=== PATIENT | female | born 1990 | race Caucasian/White ===

== ENCOUNTER 2019-03-24 15:30 | Emergency (ER) | payer OTHER ==
[2019-03-24] MEDS ORDERED: ALBUTEROL 2.5 MG/3 ML NEB SOL ONE (15:55)
[2019-03-24] MEDS ORDERED: DOXYCYCLINE 100 MG CAP PO ONE (15:55)
--- NOTE | 2019-03-24 16:01 | ER ---
Nurse's Notes [facility] Name: Radha Candelario Age: 28 yrs Sex: Female : 1990 Arrival Date: 03/24/2019 Time: 15:33 Bed 23 Private MD: Diagnosis: Wheezing;Detrimental effects of drug abuse;Cutaneous necrotic areas Presentation: 03/24 15:33 Transition of care: patient was not received from another setting of care. Risk sv Assessment: Do you want to hurt yourself or someone else? Patient reports no desire to harm self or others. 15:33 Method Of Arrival: Ambulatory sv 15:34 Presenting complaint: Patient states: 3 abscesses noted to left foot, left 2nd and 3rd sv digit that have "been there a whole." "I haven't shot up any dope in a while.". Onset of symptoms is unknown. Initial Sepsis Screen: Does the patient meet any 2 criteria? No. Patient's initial sepsis screen is negative. Does the patient have a suspected source of infection? No. Patient's initial sepsis screen is negative. Care prior to arrival: None. 15:34 Acuity: [place] 3 sv Triage Assessment: 15:33 General: Appears in no apparent distress. Behavior is calm, cooperative, appropriate sv for age. Neuro: Level of Consciousness is awake, alert, obeys commands, Gait is steady. Respiratory: Respiratory effort is even, unlabored. Derm: Abscess located on left index finger, left middle finger and anterior aspect of left ankle. Historical: - Allergies: 15:37 Depakote; sv 15:37 Seroquel; sv - Immunization history:: Adult Immunizations up to date. - Social history:: Smoking status: Patient uses tobacco products, smokes one-half pack cigarettes per day. - Ebola Screening: : No symptoms or risks identified at this time. Screenin:07 Abuse screen: Denies threats or abuse. Denies injuries from another. Nutritional rv screening: No deficits noted. Tuberculosis screening: No symptoms or risk factors identified. Fall Risk None identified. Assessment: 16:06 General: Appears in no apparent distress. Behavior is restless. Pain: Denies pain. rv Neuro: Level of Consciousness is awake, alert, obeys commands, Oriented to person, place, time, situation. Cardiovascular: Patient's skin is warm and dry. Respiratory: Parent/caregiver reports the patient having cough that is persistent. GI: No signs and/or symptoms were reported involving the gastrointestinal system. : No signs and/or symptoms were reported regarding the genitourinary system. EENT: No signs and/or symptoms were reported regarding the EENT system. Derm: Abscess. Musculoskeletal: No signs and/or symptoms reported regarding the musculoskeletal system. Vital Signs: 15:37 BP 118 / 85; Pulse 104; Resp 20; Temp 98.1(O); Pulse Ox 95% ; Weight 99.79 kg; Height 5 sv ft. 7 in. (170.18 cm); 15:37 Body Mass Index 34.46 (99.79 kg, 170.18 cm) sv ED Course: 15:33 Patient arrived in ED. sv 15:33 Arm band placed on. sv 15:37 Triage completed. sv 15:47 [facility] snw 15:47 Yobani Ponce MD is Attending Physician. snw 15:49 Huber Moon RN is Primary Nurse. rv 16:08 Patient has correct armband on for positive identification. Bed in low position. Call rv light in reach. Side rails up X 1. Pulse ox on. NIBP on. 16:08 No provider procedures requiring assistance completed. Patient did not have IV access rv during this emergency room visit. Administered Medications: 15:58 Drug: Doxycycline 100 mg Route: PO; rv 16:25 Follow up: Response: No adverse reaction rv 15:58 Drug: Albuterol 2.5 mg Route: Inhalation; rv 16:24 Follow up: Response: No adverse reaction rv Outcome: 16:00 Discharge ordered by . snw 16:08 Discharged to home ambulatory, with friend. rv 16:08 Condition: good 16:08 Discharge instructions given to patient, Instructed on discharge instructions, follow up and referral plans. 16:25 Instructed on medication usage, Demonstrated understanding of instructions, follow-up rv care, medications, Prescriptions given X 2. 16:26 Patient left the ED. rv Signatures: Ting Davison RN RN Brittni Joseph FNP-C TRANSVERSE ABDOMINAL MUSCLE NURSE-Csnw Huber Moon RN RN rv
--- NOTE | 2019-03-24 16:01 | EDPHYS ---
Physician Documentation [facility] Name: Radha Candelario Age: 28 yrs Sex: Female : 1990 Arrival Date: 03/24/2019 Time: 15:33 Bed 23 Private MD: ED Physician Yobani Ponce HPI: 03/24 15:53 This 28 yrs old Female presents to ER via Ambulatory with complaints of snw Abscess. 15:53 the patient presents with a swollen area of the anterior aspect of left ankle and left snw middle finger and left index finger. Description: scabbed, reddened, black centers. Possible cause(s): "Missed" while shooting up heroin and meth. Associated signs and symptoms: The patient has no apparent associated signs or symptoms. Modifying factors: the symptoms are alleviated by nothing. Severity of symptoms: At their worst the symptoms were moderate. The patient has experienced similar episodes in the past. The patient has been recently seen by a physician: with similar presenting complaints, given zithromax one week ago. Historical: - Allergies: 15:37 Depakote; sv 15:37 Seroquel; sv - Immunization history:: Adult Immunizations up to date. - Social history:: Smoking status: Patient uses tobacco products, smokes one-half pack cigarettes per day. - Ebola Screening: : No symptoms or risks identified at this time. ROS: 15:53 Constitutional: Negative for fever, chills, and weight loss, Eyes: Negative for injury, snw pain, redness, and discharge, ENT: Negative for injury, pain, and discharge, Neck: Negative for injury, pain, and swelling, Cardiovascular: Negative for chest pain, palpitations, and edema, Respiratory: Negative for shortness of breath, cough, wheezing, and pleuritic chest pain, Abdomen/GI: Negative for abdominal pain, nausea, vomiting, diarrhea, and constipation, Back: Negative for injury and pain, : Negative for injury, bleeding, discharge, and swelling, MS/Extremity: Negative for injury and deformity, Neuro: Negative for headache, weakness, numbness, tingling, and seizure, Psych: Negative for depression, anxiety, suicide ideation, homicidal ideation, and hallucinations. 15:53 Skin: Positive for cellulitis, of the left hand and anterior aspect of left ankle. Exam: 15:53 Constitutional: This is a well developed, well nourished patient who is awake, alert, snw and in no acute distress. Head/Face: Normocephalic, atraumatic. Eyes: Pupils equal round and reactive to light, extra-ocular motions intact. Lids and lashes normal. Conjunctiva and sclera are non-icteric and not injected. Cornea within normal limits. Periorbital areas with no swelling, redness, or edema. ENT: Nares patent. No nasal discharge, no septal abnormalities noted. Tympanic membranes are normal and external auditory canals are clear. Oropharynx with no redness, swelling, or masses, exudates, or evidence of obstruction, uvula midline. Mucous membranes moist. Neck: Trachea midline, no thyromegaly or masses palpated, and no cervical lymphadenopathy. Supple, full range of motion without nuchal rigidity, or vertebral point tenderness. No Meningismus. Chest/axilla: Normal chest wall appearance and motion. Nontender with no deformity. No lesions are appreciated. Cardiovascular: Regular rate and rhythm with a normal S1 and S2. No gallops, murmurs, or rubs. Normal PMI, no JVD. No pulse deficits. Abdomen/GI: Soft, non-tender, with normal bowel sounds. No distension or tympany. No guarding or rebound. No evidence of tenderness throughout. 15:53 Back: No spinal tenderness. No costovertebral tenderness. Full range of motion. MS/ Extremity: Pulses equal, no cyanosis. Neurovascular intact. Full, normal range of motion. Neuro: Awake and alert, GCS 15, oriented to person, place, time, and situation. Cranial nerves II-XII grossly intact. Motor strength 5/5 in all extremities. Sensory grossly intact. Cerebellar exam normal. Normal gait. 15:53 Respiratory: the patient does not display signs of respiratory distress, Respirations: shallow respirations, are not present, Breath sounds: bronchial sounds, that are moderate, decreased breath sounds, bronchitic cough. 15:53 Skin: Appearance: normal except for affected area, injury, multiple scars to extremities, necrotic area to dorsum of left ankle, left dorsal index and middle fingers 2nd to "I missed". Vital Signs: 15:37 BP 118 / 85; Pulse 104; Resp 20; Temp 98.1(O); Pulse Ox 95% ; Weight 99.79 kg; Height 5 sv ft. 7 in. (170.18 cm); 15:37 Body Mass Index 34.46 (99.79 kg, 170.18 cm) sv MDM: 15:49 Patient medically screened. snw 16:02 Data reviewed: vital signs, nurses notes. Data interpreted: Pulse oximetry: on room air snw is 95 %. Interpretation: acceptable. Counseling: I had a detailed discussion with the patient and/or guardian regarding: the historical points, exam findings, and any diagnostic results supporting the discharge/admit diagnosis, to return to the emergency department if symptoms worsen or persist or if there are any questions or concerns that arise at home. Counseling: I had a detailed discussion with the patient and/or guardian regarding: smoking cessation. Special discussion: Based on the history and exam findings, there is no indication for further emergent testing or inpatient evaluation. I discussed with the patient/guardian the need to see the primary care provider for further evaluation of the symptoms. Administered Medications: 15:58 Drug: Doxycycline 100 mg Route: PO; rv 16:25 Follow up: Response: No adverse reaction rv 15:58 Drug: Albuterol 2.5 mg Route: Inhalation; rv 16:24 Follow up: Response: No adverse reaction rv Disposition: 17:15 Co-signature as Attending Physician, Yobani Ponce MD I agree with the assessment and kdr plan of care. Disposition: 03/24/19 16:00 Discharged to Home. Impression: Wheezing, Detrimental effects of drug abuse, Cutaneous necrotic areas. - Condition is Stable. - Discharge Instructions: Skin Abscess, Allergies, Adult, Addiction and the Family, Cough, Adult, [id number], How to Use an Inhaler, [id number], What You Need To Know About Illegal Drug Use and Dependence, Youth. - Prescriptions for Doxycycline Hyclate 100 mg Oral Tablet - take 1 tablet by ORAL route every 12 hours; 20 tablet. Albuterol Sulfate 90 mcg/actuation - inhale 1-2 puff by INHALATION route every 4-6 hours; 1 Inhaler. - Medication Reconciliation Form, Thank You Letter, Antibiotic Education, Prescription Opioid Use form. - Follow up: Private Physician; When: 1 week; Reason: Recheck today's complaints, Continuance of care, Re-evaluation by your physician. Follow up: Emergency Department; When: As needed; Reason: Worsening of condition. Signatures: Saman, Ting, RN RN sv Yobani Ponce MD MD [facility] Brittni Joseph, CANCER RESEARCHER-C CANCER RESEARCHER-Csnw Huber Moon, RN RN rv Corrections: (The following items were deleted from the chart) 16:26 16:00 03/24/2019 16:00 Discharged to Home. Impression: Wheezing; Detrimental effects of rv drug abuse; Cutaneous necrotic areas. Condition is Stable. Forms are Medication Reconciliation Form, Thank You Letter, Antibiotic Education, Prescription Opioid Use. Follow up: Private Physician; When: 1 week; Reason: Recheck today's complaints, Continuance of care, Re-evaluation by your physician. Follow up: Emergency Department; When: As needed; Reason: Worsening of condition. snw
[2019-03-24 17:12] VITALS: BP 118/85; TEMP 98.1; O2SAT 95
== END 2019-03-24 16:26 | disposition home or self-care (01) ==
LOC: ER 15:30
DX: I96 Gangrene, not elsewhere classified (principal); F19.10 Other psychoactive substance abuse, uncomplicated; F17.210 Nicotine dependence, cigarettes, uncomplicated; Z88.5 Allergy status to narcotic agent
CPT/HCPCS: 99284

== ENCOUNTER 2019-03-27 17:43 | Emergency (ER) | payer OTHER ==
--- NOTE | 2019-03-27 18:14 | ER ---
Nurse's Notes [facility] Name: Radha Candelario Age: 28 yrs Sex: Female : 1990 Arrival Date: 03/27/2019 Time: 17:45 Bed 19 Private MD: Diagnosis: Cutaneous abscess of right lower limb Presentation: 03/27 17:51 Presenting complaint: Patient states: was seen here on 03/24/19 and prescribed abx for sv the abscess and states the abscess are getting worse and now has another on her inner thigh. Transition of care: patient was not received from another setting of care. Onset of symptoms was March 2019. Risk Assessment: Do you want to hurt yourself or someone else? Patient reports no desire to harm self or others. Care prior to arrival: None. 17:51 Method Of Arrival: Ambulatory sv 17:51 Acuity: [place] 3 sv 18:00 Initial Sepsis Screen: Does the patient meet any 2 criteria? No. Patient's initial rb1 sepsis screen is negative. Does the patient have a suspected source of infection? No. Patient's initial sepsis screen is negative. Historical: - Allergies: 17:52 Depakote; sv 17:52 Seroquel; sv - Immunization history:: Adult Immunizations up to date. - Social history:: Smoking status: Patient uses tobacco products, smokes one pack cigarettes per day. - Ebola Screening: : Patient negative for fever greater than or equal to 101.5 degrees Fahrenheit, and additional compatible Ebola Virus Disease symptoms. Screenin:00 Abuse screen: Denies threats or abuse. Nutritional screening: No deficits noted. rb1 Tuberculosis screening: No symptoms or risk factors identified. Fall Risk None identified. Assessment: 18:00 General: Appears in no apparent distress. comfortable, Behavior is calm, cooperative, rb1 Denies fever. Pain: Complains of pain in right inner thigh Pain currently is 3 out of 10 on a pain scale. Neuro: Level of Consciousness is awake, alert, obeys commands, Oriented to person, place, time, situation. Cardiovascular: Capillary refill < 3 seconds is brisk in bilateral fingers. Respiratory: Airway is patent Respiratory effort is even, unlabored, Respiratory pattern is regular, symmetrical. GI: No signs and/or symptoms were reported involving the gastrointestinal system. : No signs and/or symptoms were reported regarding the genitourinary system. Derm: Skin is pink, warm \T\ dry. Injury Description: Abscess on right inner thigh, healing wound on right lower leg, and left middle digit. Pt. reports it is from being IV drug user. Vital Signs: 17:52 BP 107 / 96; Pulse 114; Resp 20; Temp 98.2; Pulse Ox 99% ; Weight 99.79 kg; Height 5 sv ft. 7 in. (170.18 cm); 17:52 Body Mass Index 34.46 (99.79 kg, 170.18 cm) sv ED Course: 17:45 Patient arrived in ED. as 17:52 Triage completed. sv 17:52 Arm band placed on. sv 17:53 [facility] snw 17:53 Jarett Victor MD is Attending Physician. snw 18:00 Patient has correct armband on for positive identification. Bed in low position. Call rb1 light in reach. Side rails up X 1. Pulse ox on. NIBP on. 18:26 Karen George, RN is Primary Nurse. rb1 18:44 No provider procedures requiring assistance completed. Patient did not have IV access rb1 during this emergency room visit. Administered Medications: 18:30 Drug: Bactroban Ointment 2 % 1 application Route: Topical; Site: affected area; rb1 Outcome: 18:13 Discharge ordered by . snw 18:44 Discharged to Rehab Facility rb1 18:44 Condition: stable 18:44 Discharge instructions given to patient, Instructed on discharge instructions, follow up and referral plans. Demonstrated understanding of instructions, follow-up care, Prescriptions given X none 18:46 Patient left the ED. rb1 Signatures: Ting Davison, RN RN Brittni Joseph FNP-C FNP-Mercedes Tan as Karen George, RN RN rb1 Corrections: (The following items were deleted from the chart) 17:53 17:51 Presenting complaint: Patient states: was seen here on 03/24/19 and prescribed abx sv for the abscess and states the abscess are getting worse. sv 19:04 19:03 Patient left the ED. rb1 rb1
--- NOTE | 2019-03-27 18:14 | EDPHYS ---
Physician Documentation [facility] Name: Radha Candelario Age: 28 yrs Sex: Female : 1990 Arrival Date: 03/27/2019 Time: 17:45 Bed 19 Private MD: ED Physician Jarett Victor HPI: 03/27 18:27 This 28 yrs old Female presents to ER via Ambulatory with complaints of snw Abscess. 18:27 The patient presents with an abscess of the right inner thigh. Description: The snw affected area is very small, well demarcated, fluctuant. Onset: The symptoms/episode began/occurred suddenly. Possible cause(s): pt denies injection in this area. Associated signs and symptoms: The patient has no apparent associated signs or symptoms. Severity of symptoms: At their worst the symptoms were mild. The patient has experienced similar episodes in the past. The patient has been recently seen by a physician: The patient has been recently seen at the [facility] Emergency Department, this week. Historical: - Allergies: 17:52 Depakote; sv 17:52 Seroquel; sv - Immunization history:: Adult Immunizations up to date. - Social history:: Smoking status: Patient uses tobacco products, smokes one pack cigarettes per day. - Ebola Screening: : Patient negative for fever greater than or equal to 101.5 degrees Fahrenheit, and additional compatible Ebola Virus Disease symptoms. ROS: 18:19 Constitutional: Negative for fever, chills, and weight loss, Eyes: Negative for injury, snw pain, redness, and discharge, ENT: Negative for injury, pain, and discharge, Neck: Negative for injury, pain, and swelling, Cardiovascular: Negative for chest pain, palpitations, and edema, Respiratory: Negative for shortness of breath, cough, wheezing, and pleuritic chest pain, Abdomen/GI: Negative for abdominal pain, nausea, vomiting, diarrhea, and constipation, Back: Negative for injury and pain, : Negative for injury, bleeding, discharge, and swelling, MS/Extremity: Negative for injury and deformity, Neuro: Negative for headache, weakness, numbness, tingling, and seizure, Psych: Negative for depression, anxiety, suicide ideation, homicidal ideation, and hallucinations. 18:19 Skin: Positive for necrotic areas remain post injection of heroin and meth, area at right ankle with increased irritation, pt states it is from her sock irritating area. New right lower extremity abscess.. Exam: 18:15 Constitutional: This is a well developed, well nourished patient who is awake, alert, snw and in no acute distress. Head/Face: Normocephalic, atraumatic. Eyes: Pupils equal round and reactive to light, extra-ocular motions intact. Lids and lashes normal. Conjunctiva and sclera are non-icteric and not injected. Cornea within normal limits. Periorbital areas with no swelling, redness, or edema. ENT: Nares patent. No nasal discharge, no septal abnormalities noted. Tympanic membranes are normal and external auditory canals are clear. Oropharynx with no redness, swelling, or masses, exudates, or evidence of obstruction, uvula midline. Mucous membranes moist. Neck: Trachea midline, no thyromegaly or masses palpated, and no cervical lymphadenopathy. Supple, full range of motion without nuchal rigidity, or vertebral point tenderness. No Meningismus. Chest/axilla: Normal chest wall appearance and motion. Nontender with no deformity. No lesions are appreciated. Cardiovascular: Regular rate and rhythm with a normal S1 and S2. No gallops, murmurs, or rubs. Normal PMI, no JVD. No pulse deficits. Respiratory: Lungs have equal breath sounds bilaterally, clear to auscultation and percussion. No rales, rhonchi or wheezes noted. No increased work of breathing, no retractions or nasal flaring. Abdomen/GI: Soft, non-tender, with normal bowel sounds. No distension or tympany. No guarding or rebound. No evidence of tenderness throughout. Back: No spinal tenderness. No costovertebral tenderness. Full range of motion. MS/ Extremity: Pulses equal, no cyanosis. Neurovascular intact. Full, normal range of motion. Neuro: Awake and alert, GCS 15, oriented to person, place, time, and situation. Cranial nerves II-XII grossly intact. Motor strength 5/5 in all extremities. Sensory grossly intact. Cerebellar exam normal. Normal gait. Psych: Awake, alert, with orientation to person, place and time. Behavior, mood, and affect are within normal limits. 18:15 Skin: Appearance: normal except for affected area, necrotic area to right ankle with increased irritation, necrotic area with minimal bleeding around it, new area of abscess to right inner, upper thigh next to old scar, incised with blunt needle. Vital Signs: 17:52 BP 107 / 96; Pulse 114; Resp 20; Temp 98.2; Pulse Ox 99% ; Weight 99.79 kg; Height 5 sv ft. 7 in. (170.18 cm); 17:52 Body Mass Index 34.46 (99.79 kg, 170.18 cm) sv Procedures: 18:15 I \T\ D: Incision and drainage was performed for an abscess of the right Prepped with snw hibiclens. Incised with needle. Drained large amount purulent fluid. serosanguinous fluid. Packed with none. the patient tolerated the procedure well. MDM: 17:55 Patient medically screened. snw 18:18 Data reviewed: vital signs, nurses notes. Data interpreted: Pulse oximetry: on room air snw is 99 %. Interpretation: normal. Counseling: I had a detailed discussion with the patient and/or guardian regarding: the historical points, exam findings, and any diagnostic results supporting the discharge/admit diagnosis, the need for outpatient follow up, for definitive care, to return to the emergency department if symptoms worsen or persist or if there are any questions or concerns that arise at home. Special discussion: Based on the history and exam findings, there is no indication for further emergent testing or inpatient evaluation. I discussed with the patient/guardian the need to see the primary care provider for further evaluation of the symptoms. I discussed with the patient/guardian the need to see the psychiatrist for further evaluation of the symptoms. Administered Medications: 18:30 Drug: Bactroban Ointment 2 % 1 application Route: Topical; Site: affected area; rb1 Disposition: 03/28 07:45 Co-signature as Attending Physician, Jarett Victor MD. Disposition: 03/27/19 18:13 Discharged to Home. Impression: Cutaneous abscess of right lower limb. - Condition is Stable. - Discharge Instructions: Skin Abscess, Incision and Drainage, Substance Use Disorder. - Medication Reconciliation Form, Thank You Letter, Antibiotic Education, Prescription Opioid Use form. - Follow up: Private Physician; When: 2 - 3 days; Reason: Recheck today's complaints, Continuance of care, Re-evaluation by your physician. Follow up: Emergency Department; When: As needed; Reason: Worsening of condition. - Notes: Please continue current antibiotics, cleanse skin lesions with hibiclens, apply Bactroban to new and healing lesions Signatures: Ting Davison, RN RN Brittni Joseph, PLASTICS PLATER-C PLASTICS PLATER-Csnw Karen George, RN RN rb1 Jarett Victor MD MD Corrections: (The following items were deleted from the chart) 03/27 18:46 18:13 03/27/2019 18:13 Discharged to Home. Impression: Cutaneous abscess of right lower rb1 limb. Condition is Stable. Forms are Medication Reconciliation Form, Thank You Letter, Antibiotic Education, Prescription Opioid Use. Follow up: Private Physician; When: 2 - 3 days; Reason: Recheck today's complaints, Continuance of care, Re-evaluation by your physician. Follow up: Emergency Department; When: As needed; Reason: Worsening of condition. [facility] 19:03 18:46 03/27/2019 18:13 Discharged to Home. Impression: Cutaneous abscess of right lower rb1 limb. Condition is Stable. Discharge Instructions: Skin Abscess, Incision and Drainage, Substance Use Disorder. Forms are Medication Reconciliation Form, Thank You Letter, Antibiotic Education, Prescription Opioid Use. Follow up: Private Physician; When: 2 - 3 days; Reason: Recheck today's complaints, Continuance of care, Re-evaluation by your physician. Follow up: Emergency Department; When: As needed; Reason: Worsening of condition. rb1
[2019-03-27] MEDS ORDERED: MUPIROCIN 2% OINT 22GM TUBE TOP ONE (18:28)
[2019-03-27 19:33] VITALS: BP 107/96; TEMP 98.2; O2SAT 99
== END 2019-03-27 19:03 | disposition home or self-care (01) ==
LOC: ER 17:43
PROC: 0J9L0ZZ Drainage of Right Upper Leg Subcutaneous Tissue and Fascia, Open Approach (ICD-10-PCS; principal; 2019-03-27)
DX: L02.415 Cutaneous abscess of right lower limb (principal); F17.210 Nicotine dependence, cigarettes, uncomplicated; Z88.5 Allergy status to narcotic agent
CPT/HCPCS: 99283

== ENCOUNTER 2019-03-28 16:18 | Emergency (ER) | payer OTHER ==
--- NOTE | 2019-03-28 17:45 | RAD REPORT ---
EXAM DESCRIPTION: RAD - Ankle Right 3 View - 03/28/2019 5:30 pm CLINICAL HISTORY: Pain, soft tissue swelling, twisting injury COMPARISON: None. FINDINGS: No fracture, dislocation or periosteal reaction. No joint effusion seen. No joint space na rrowing. Mild soft tissue swelling is present. IMPRESSION: Mild soft tissue swelling. No acute bone or joint finding.
[2019-03-28 17:46] LABS: Urine Blood NEGATIVE (NEG); Urine Glucose NEGATIVE (NEG); Urine Protein NEGATIVE (NEG); Urine Specific Gravity 1.025 (1.005-1.030); Urine pH 5.5 (5.0-7.0)
--- NOTE | 2019-03-28 17:46 | RAD REPORT ---
EXAM DESCRIPTION: RAD - Hand Left 3 View - 03/28/2019 5:30 pm CLINICAL HISTORY: Hand pain, soft tissue swelling third digit COMPARISON: None. FINDINGS: No fracture, dislocation or periosteal reaction noted. No acute bone or joint finding seen . Third digit soft tissue swelling is present with lesser swelling of the second digit. No air or for eign body in the soft tissues. IMPRESSION: Soft tissue swelling involving the second and third digits. No calcification, air or for eign body seen. No acute bone or joint finding.
[2019-03-28] MEDS ORDERED: SMZ./TMP. 800/160 MG TABLET ONE (18:25)
[2019-03-28] MEDS ORDERED: LIDOCAINE 1% MPF 5 ML VIAL ONE (18:25)
[2019-03-28] MEDS ORDERED: LIDOCAINE 1% W/EPI 1:100,000 MDV 50 ML VIAL ONE (18:26)
--- NOTE | 2019-03-28 19:10 | EDPHYS ---
Physician Documentation [facility] Name: Radha Candelario Age: 28 yrs Sex: Female : 1990 Arrival Date: 03/28/2019 Time: 16:21 Bed 18 Private MD: ED Physician Jarett Victor HPI: 03/28 16:59 This 28 yrs old Female presents to ER via Ambulatory with complaints of Skin cp Sore(s). 17:00 the patient presents with a swollen area of the left hand and right ankle. Description: cp swollen, warm. Onset: The symptoms/episode began/occurred gradually. Possible cause(s): injection sites for IV drugs. Associated signs and symptoms: Pertinent negatives: discharge, drainage, fever, shortness of breath. 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 tw2 Historical: - Allergies: 16:26 Depakote; hb 16:26 Seroquel; hb - Immunization history:: Adult Immunizations up to date. - Social history:: Smoking status: Patient uses tobacco products, smokes one-half pack cigarettes per day. - Ebola Screening: : No symptoms or risks identified at this time. ROS: 17:05 Constitutional: Negative for body aches, chills, fever. cp 17:05 Skin: Positive for cellulitis, of the left hand and right ankle. cp 17:05 All other systems are negative. Exam: 17:20 Constitutional: The patient appears in no acute distress, alert, awake, non-toxic, well cp developed, well nourished. 17:20 Head/Face: Normocephalic, atraumatic. cp 17:20 Eyes: Periorbital structures: appear normal, Conjunctiva: normal, Sclera: no appreciated abnormality, Lids and lashes: appear normal, bilaterally. 17:20 ENT: External ear(s): are unremarkable, Nose: is normal, Mouth: Lips: moist, Oral mucosa: moist, Posterior pharynx: is normal, airway is patent. 17:20 Chest/axilla: Inspection: normal. 17:20 Cardiovascular: Rate: tachycardic, Rhythm: regular. 17:20 Respiratory: the patient does not display signs of respiratory distress, Respirations: normal, no use of accessory muscles, no retractions, no splinting, no tachypnea, labored breathing, is not present, Breath sounds: are clear throughout. 17:20 Abdomen/GI: Inspection: abdomen appears normal, Palpation: abdomen is soft and non-tender. 17:20 Skin: Appearance: swelling, that are mild, mild erythema, cellulitis, that is mild, on the left middle finger and anterior aspect right ankle. Vital Signs: 16:26 BP 119 / 83; Pulse 106; Resp 16; Temp 98.1; Pulse Ox 99% on R/A; Weight 99.79 kg; hb Height 5 ft. 7 in. (170.18 cm); Pain 6/10; 18:43 BP 120 / 79; Pulse 83; Resp 16; Pulse Ox 100% on R/A; em 19:20 BP 118 / 77; Pulse 89; Resp 15 S; Temp 98.1(O); Pulse Ox 100% on R/A; Pain 0/10; cc3 16:26 Body Mass Index 34.46 (99.79 kg, 170.18 cm) hb MDM: 16:35 Patient medically screened. cp 17:40 Differential diagnosis: abscess, cellulitis, retained foreign body, sepsis. cp 19:07 Data reviewed: vital signs, nurses notes, radiologic studies, plain films. cp 19:07 Test interpretation: by ED physician or midlevel provider: plain radiologic studies, cp xrays of left hand negative for foreign body and xrays of right ankle negative for foreign body. Counseling: I had a detailed discussion with the patient and/or guardian regarding: the historical points, exam findings, and any diagnostic results supporting the discharge/admit diagnosis, radiology results, to return to the emergency department if symptoms worsen or persist or if there are any questions or concerns that arise at home. Response to treatment: the patient's symptoms have markedly improved after treatment, and as a result, I will discharge patient. 03/28 17:38 Order name: Urine Dipstick--Ancillary (enter results); Complete Time: 17:58 eb 03/28 17:38 Order name: Urine --Ancillary (enter results); Complete Time: 17:58 eb 03/28 16:58 Order name: XRAY Hand LEFT 3 View; Complete Time: 17:58 cp 03/28 17:58 Interpretation: Report reviewed. 03/28 16:58 Order name: XRAY Ankle RIGHT 3 view; Complete Time: 17:58 cp 03/28 17:59 Interpretation: Report reviewed. 03/28 16:58 Order name: Urine Dipstick-Ancillary (obtain specimen); Complete Time: 17:20 03/28 16:58 Order name: Urine Test (obtain specimen); Complete Time: 17:20 03/28 18:01 Order name: Dressing - Wound; Complete Time: 19:39 03/28 18:01 Order name: Gloves, Sterile; Complete Time: 18:33 03/28 18:01 Order name: Setup Suture Tray; Complete Time: 18:33 03/28 19:07 Order name: Wound dressing; Complete Time: 19:39 cp Administered Medications: 18:32 Drug: Bactrim (160 mg-800 mg (DS) 1 tablet Route: PO; em 19:40 Follow up: Response: No adverse reaction cc3 18:49 Drug: Lidocaine-Epinephrine -1%: (1:100,000) 10 ml {Note: administered by PA. eBst} em Volume: 20 ml; Route: Infiltration; Site: wound; 19:25 Drug: Tylenol 650 mg Route: PO; 19:40 Follow up: Response: No adverse reaction; Pain is decreased cc3 19:25 Drug: Ibuprofen 800 mg Route: PO; 19:40 Follow up: Response: No adverse reaction; Pain is decreased cc3 Disposition: 19:45 Chart complete. Disposition: 03/28/19 19:08 Discharged to Home. Impression: Open wound of ankle - right, Cellulitis of left finger - middle. - Condition is Stable. - Discharge Instructions: Cellulitis, Adult, Wound Infection, Wound Care, Surgical Wound Debridement, Surgical Wound Debridement, Care After. - Prescriptions for Ibuprofen 800 mg Oral Tablet - take 1 tablet by ORAL route every 8 hours As needed take with food; 30 tablet. Bactrim DS 800- 160 mg Oral Tablet - take 1 tablet by ORAL route every 12 hours for 10 days; 20 tablet. - Medication Reconciliation Form, Thank You Letter, Antibiotic Education, Prescription Opioid Use form. - Follow up: Yefri Adams MD; When: 2 - 3 days; Reason: Worsening of condition. - Problem is new. - Symptoms have improved. Addendum: 03/30/2019 22:45 Co-signature as Attending Physician, Jarett Victor MD. g s Signatures: Dispatcher [employer] EDArt Jimenez, PBX WIRE CHIEF PBX WIRE CHIEF Best Charles PA PA cp Mary Ellen Galarza, RN RN Jelani Cai Jarett Victor MD MD gs Cordel, Charlene cc3 Corrections: (The following items were deleted from the chart) 03/28 19:41 19:08 03/28/2019 19:08 Discharged to Home. Impression: Open wound of ankle - right; cc3 Cellulitis of left finger - middle. Condition is Stable. Forms are Medication Reconciliation Form, Thank You Letter, Antibiotic Education, Prescription Opioid Use. Follow up: Yefri Adams; When: 2 - 3 days; Reason: Worsening of condition. Problem is new. Symptoms have improved. cp
--- NOTE | 2019-03-28 19:10 | ER ---
Nurse's Notes [facility] Name: Radha Candelario Age: 28 yrs Sex: Female : 1990 Arrival Date: 03/28/2019 Time: 16:21 Bed 18 Private MD: Diagnosis: Open wound of ankle-right;Cellulitis of left finger-middle Presentation: 03/28 16:25 Presenting complaint: Abscess on left middle finger and top of right foot x 2 weeks. hb Transition of care: patient was not received from another setting of care. Onset of symptoms. Risk Assessment: Do you want to hurt yourself or someone else? Patient reports no desire to harm self or others. Initial Sepsis Screen: Does the patient meet any 2 criteria? No. Patient's initial sepsis screen is negative. Does the patient have a suspected source of infection? No. Patient's initial sepsis screen is negative. Care prior to arrival: None. 16:25 Method Of Arrival: Ambulatory hb 16:25 Acuity: [place] 4 hb Triage Assessment: 16:32 General: Appears in no apparent distress. Behavior is calm, cooperative, appropriate tw2 for age. Pain: Complains of pain in dorsal aspect of distal phalanx of left middle finger and left middle fingernail. 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 tw2 Historical: - Allergies: 16:26 Depakote; hb 16:26 Seroquel; hb - Immunization history:: Adult Immunizations up to date. - Social history:: Smoking status: Patient uses tobacco products, smokes one-half pack cigarettes per day. - Ebola Screening: : No symptoms or risks identified at this time. Screenin:31 Abuse screen: Denies threats or abuse. Nutritional screening: No deficits noted. tw2 Tuberculosis screening: No symptoms or risk factors identified. Fall Risk None identified. Assessment: 17:00 General: Appears in no apparent distress. comfortable, Behavior is calm, cooperative, em Denies fever. Pain: Complains of pain in dorsum of right foot and left middle fingernail Pain currently is 6 out of 10 on a pain scale. Neuro: Level of Consciousness is awake, alert, obeys commands, Oriented to person, place, time, situation, Appropriate for age. Cardiovascular: Capillary refill < 3 seconds Patient's skin is warm and dry. Respiratory: Airway is patent Respiratory effort is even, unlabored, Respiratory pattern is regular, symmetrical. Derm: Wound noted dorsum of right foot and left middle fingernail. Musculoskeletal: Capillary refill < 3 seconds, Range of motion: intact in all extremities. 18:00 Reassessment: Patient appears in no apparent distress at this time. Patient and/or em family updated on plan of care and expected duration. Pain level reassessed. Patient is alert, oriented x 3, equal unlabored respirations, skin warm/dry/pink. 19:15 Reassessment: Patient appears in no apparent distress at this time. Patient and/or cc3 family updated on plan of care and expected duration. Pain level reassessed. Patient is alert, oriented x 3, equal unlabored respirations, skin warm/dry/pink. Received this female patient from morning shift [facility] as a case of cellulitis to right dorsum of foot and left middle finger. No IV cannula in situ. Patient denies pain at this time. General: Appears in no apparent distress. comfortable, Behavior is calm, cooperative, appropriate for age. Pain: Denies pain. Neuro: Level of Consciousness is awake, alert, obeys commands, Oriented to person, place, time, situation, Appropriate for age. Cardiovascular: Denies chest pain, Capillary refill < 3 seconds in bilateral fingers Patient's skin is warm and dry. Respiratory: Airway is patent Respiratory effort is even, unlabored, Respiratory pattern is regular, symmetrical. GI: Abdomen is round non-distended. : No signs and/or symptoms were reported regarding the genitourinary system. EENT: No signs and/or symptoms were reported regarding the EENT system. Derm: Wound noted dorsum of right foot and dorsal aspect of distal phalanx of left middle finger Wound is round. Musculoskeletal: Circulation, motion, and sensation intact. Range of motion: intact in all extremities. 19:40 Reassessment: Patient appears in no apparent distress at this time. Patient and/or cc3 family updated on plan of care and expected duration. Pain level reassessed. Patient is alert, oriented x 3, equal unlabored respirations, skin warm/dry/pink. Wound cleaning and dressing done. [employer] discharged the patient home with prescriptions given. No IV cannula in situ. Patient called [facility] to let them know that she's discharged and was told that they will send a sales representative uniforms to fetch her. Patient went out of ER vitally stable and ambulatory and will wait for [place] sales representative uniforms in the lobby. No valuables left in the patient's room. Patient denies pain at this time. Patient states feeling better. Patient states symptoms have improved. Vital Signs: 16:26 BP 119 / 83; Pulse 106; Resp 16; Temp 98.1; Pulse Ox 99% on R/A; Weight 99.79 kg; hb Height 5 ft. 7 in. (170.18 cm); Pain 6/10; 18:43 BP 120 / 79; Pulse 83; Resp 16; Pulse Ox 100% on R/A; em 19:20 BP 118 / 77; Pulse 89; Resp 15 S; Temp 98.1(O); Pulse Ox 100% on R/A; Pain 0/10; cc3 16:26 Body Mass Index 34.46 (99.79 kg, 170.18 cm) hb ED Course: 16:21 Patient arrived in ED. mr 16:25 Triage completed. hb 16:26 Arm band placed on right wrist. hb 16:28 [employer] PA is PHCP. cp 16:28 Jarett Victor MD is Attending Physician. cp 16:30 Bed in low position. Call light in reach. Adult w/ patient. tw2 16:33 Art Strong LVN is Primary Nurse. em 17:20 Urine collected: clean catch specimen, clear. dh3 17:31 XRAY Hand LEFT 3 View In Process Unspecified. EDMS 17:31 XRAY Ankle RIGHT 3 view In Process Unspecified. EDMS 19:07 Yefri Adams MD is Referral Physician. cp 19:40 No provider procedures requiring assistance completed. Patient did not have IV access cc3 during this emergency room visit. Administered Medications: 18:32 Drug: Bactrim (160 mg-800 mg (DS) 1 tablet Route: PO; em 19:40 Follow up: Response: No adverse reaction cc3 18:49 Drug: Lidocaine-Epinephrine -1%: (1:100,000) 10 ml {Note: administered by ART Jewell.} em Volume: 20 ml; Route: Infiltration; Site: wound; 19:25 Drug: Tylenol 650 mg Route: PO; wh 19:40 Follow up: Response: No adverse reaction; Pain is decreased cc3 19:25 Drug: Ibuprofen 800 mg Route: PO; 19:40 Follow up: Response: No adverse reaction; Pain is decreased cc3 Outcome: 19:08 Discharge ordered by MD. reina 19:40 Discharged to [facility] cc3 19:40 Condition: stable 19:40 Discharge instructions given to patient, Instructed on discharge instructions, follow up and referral plans. medication usage, wound care, Demonstrated understanding of instructions, follow-up care, medications, wound care, Prescriptions given X 2. 19:41 Patient left the ED. cc3 Signatures: Dispatcher [employer] ALEXI BonyRitu mr Strong, Art, DEPARTMENT SALES MANAGER DEPARTMENT SALES MANAGER em [employer], Mary Ellen Obrien cp, DENILSON RN Nguyen Monk RN RN 2 Susan Matthews formerly [facility] Jelani Smith Charlene cc3
[2019-03-28] MEDS ORDERED: IBUPROFEN 400 MG TAB ONE (19:21)
[2019-03-28] MEDS ORDERED: ACETAMINOPHEN 325 MG TABLET ONE (19:21)
[2019-03-28 19:45] VITALS: TEMP 98.1
[2019-03-28 19:46] VITALS: BP 120/79; O2SAT 100
== END 2019-03-28 19:41 | disposition home or self-care (01) ==
LOC: ER 16:18
DX: S91.001A Unspecified open wound, right ankle, initial encounter (principal); L03.115 Cellulitis of right lower limb; L03.012 Cellulitis of left finger; F17.210 Nicotine dependence, cigarettes, uncomplicated; Z88.5 Allergy status to narcotic agent
CPT/HCPCS: 81003; 81025; 99284